=== PATIENT | male | born 1940 | race Caucasian/White ===

== ENCOUNTER 2017-06-06 03:02 | Emergency (ER) | payer MEDICARE, OTHER ==
[2017-06-06 03:57] LABS: INR-International Normal Ratio 3.2; PTT 43.7 SEC (22.9-36.1); Prothrombin Time 34.2 SEC (12.0-14.7)
[2017-06-06] MEDS ORDERED: HYDROcodone/Acetaminophen 10/325 mg Tablet ONE (04:02)
[2017-06-06 04:06] LABS: ALT (SGPT) 49 U/L (8-55); AST (SGOT) 43 U/L (5-34); Albumin 3.8 g/dL (3.4-4.8); Alkaline Phosphatase 113 U/L (40-150); Anion Gap 14 mmol/L (10-20); BUN (Urea Nitrogen) 32 mg/dL (8.4-25.7); Bilirubin, Total 0.7 mg/dL (0.2-1.2); Calc. Creatinine Clearance 0 mL/min (70-130); Calcium 9.6 mg/dL (7.8-10.44); Carbon Dioxide 22 mmol/L (23-31); Chloride 106 mmol/L (98-107); Estimated GFR-MDRD 46; Globulin 3.6 g/dL (2.4-3.5); Glucose 113 mg/dL (83-110); Potassium 4.2 mmol/L (3.5-5.1); Protein, Total 7.4 g/dL (5.8-8.1); Sodium 138 mmol/L (136-145)
[2017-06-06 04:08] LABS: CKMB 1.8 ng/mL (0-6.6); Troponin I 0.093 ng/mL (< 0.028)
[2017-06-06 04:18] LABS: #Basophils 0.1 thou/uL (0.0-0.2); #Eosinphils 0.3 thou/uL (0.0-0.7); #Lymphocytes 2.4 thou/uL (1.20-3.40); #Monocytes 0.7 thou/uL (0.11-0.59); #Neutrophils 4.8 thou/uL (1.40-6.50); %Basophils 0.8 % (0.0-1.0); %Eosinophils 3.7 % (0.0-10.0); %Lymphocytes 29.4 % (21.0-51.0); %Monocytes 8.1 % (0.0-10.0); %Neutrophils 58.1 % (42.0-75.0); Hemoglobin 14.2 g/dL (14.0-18.0); Mean Corpuscular Hemoglobin 31.5 pg (27.0-31.0); Mean Corpuscular Volume 98.6 fl (80.0-94.0); Mean Platelet Volume 9.9 fL (7.4-10.4); PLT Morphology Comment Appears Adequate; Platelet Count 117 thou/uL (130-400); RBC Distribution Width 13.8 % (11.5-14.5); RBC Morphology Normal; Red Blood Cell (RBC) Count 4.51 mill/uL (4.70-6.10); White Blood Cell (WBC) Count 8.3 thou/uL (4.8-10.8)
[2017-06-06 04:19] LABS: MDiff Complete? YES
[2017-06-06] MEDS ORDERED: Fentanyl 100 MCG/2 ML VIAL ONE ×2 (05:14→07:24)
[2017-06-06] MEDS ORDERED: Ondansetron HCl/PF 4 MG/2 ML Vial ONE (05:14)
--- NOTE | 2017-06-06 08:51 | RAD ---
FRONTAL VIEW CHEST: INDICATIONS: Dizziness. Epistaxis. FINDINGS: The cardiac silhouette is enlarged, as is the pulmonary vasculature. No lobar consolidation, effusio n, or discrete pneumothorax identified. There is a left-sided dual-lead AICD. Osseous degenerative change is present. Prior sternotomy with vascular calcification is noted. IMPRESSION: Evidence of congestive heart failure. POS: EDUARD
[2017-06-06] MEDS ORDERED: Acetaminophen 500 MG TAB ONE (10:10)
== END 2017-06-06 11:01 ==
LOC: NAV ERS 03:02
DX: R04.0 Epistaxis (principal); E78.5 Hyperlipidemia, unspecified; I10 Essential (primary) hypertension; F17.210 Nicotine dependence, cigarettes, uncomplicated; Z79.01 Long term (current) use of anticoagulants
CPT/HCPCS: 30903; 36415; 71045; 80053; 82553; 84484; 85025; 85610; 85730; 93005; 96374; 96375; 96376; J2405; J3010